=== PATIENT | female | born 1960 | race Caucasian/White ===

== ENCOUNTER 2024-04-05 15:21 | Outpatient (CLI) | payer OTHER, SELFPAY | END 2024-04-05 15:22 | disposition home or self-care (01) | LOC: AMB 04-10 10:40 | PROVIDERS: PCP Family Medicine; Visit Provider Emergency Medicine Emergency Medical Services | DX: S29.9XXA Unspecified injury of thorax, initial encounter (principal); V49.40XA Driver injured in collision with unspecified motor vehicles in traffic accident, initial encounter; Y92.410 Unspecified street and highway as the place of occurrence of the external cause | CPT/HCPCS: A0425; A0427 ==

== ENCOUNTER 2024-04-05 15:59 | Emergency (ER) | payer OTHER, SELFPAY ==
[2024-04-05] VITALS (7 sets, daily range): BP systolic 123–136; BP diastolic 82–93; PULSE 74–99; RESP 16–20; TEMP 26.6–36.8; O2SAT 90–99; BMI 18.8
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
== END 2024-04-05 17:45 | disposition home or self-care (01) ==
PROVIDERS: Emergency Provider Emergency Medicine Emergency Medical Services; PCP Family Medicine
DX: R07.89 Other chest pain (principal); V43.52XA Car driver injured in collision with other type car in traffic accident, initial encounter
CPT/HCPCS: 76604; 76705; 93308; 99284

== ENCOUNTER 2024-04-14 13:09 | Emergency (ER) | payer OTHER, SELFPAY ==
[2024-04-14 13:23] VITALS: BP 136/85; PULSE 86; RESP 18; TEMP 36.9; O2SAT 98; BMI 21.8
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
[2024-04-14 15:41] VITALS: BP 132/86; PULSE 76; RESP 20
== END 2024-04-14 15:43 | disposition home or self-care (01) ==
PROVIDERS: Emergency Provider Emergency Medicine; PCP Family Medicine
DX: S22.20XA Unspecified fracture of sternum, initial encounter for closed fracture (principal); R91.1 Solitary pulmonary nodule; V43.52XA Car driver injured in collision with other type car in traffic accident, initial encounter
CPT/HCPCS: 71250; 84484; 93005; 99284; 99285